=== PATIENT | male | born 1985 | race Hispanic/Latino ===

== ENCOUNTER 2016-10-16 11:17 | Emergency (ER) | payer OTHER ==
[~2016-10-16] VITALS: Ht 172.7 cm; Wt 102.1 kg
[~2016-10-16 11:17] MED LIST: LISINOPRIL10 M1 PO
[2016-10-16 11:24] VITALS: BP 136/87
--- NOTE | 2016-10-16 11:43 | ED GI/GU/ABDOMINAL COMPLAINT ---
History of Present Illness General Chief Complaint: Abdominal Pain/Flank Pain Stated Complaint: BLOOD IN URINE,LT SIDE ABD/FLANK PAIN Source: patient Exam Limitations: no limitations Vital Signs & Intake/Output Vital Signs & Intake/Output Vital Signs Date Time Temp Pulse Resp B/P Pulse O2 O2 Flow FiO2 Ox Delivery Rate 10/16 1124 97.6 93 20 136/87 98 Room Air Allergies Coded Allergies: NO KNOWN ALLERGIES (08/11/11) Reconcile Medications Lisinopril 10 MG TABLET 1 TAB PO DAILY BP (Reported) Tramadol HCl 50 MG TABLET 1 TAB PO BIDP PRN pain Triage Note: PT C/O BLOOD IN URINE X 3 DAYS. PT STATES A LITTLE PAIN IN HIS GROIN AND IN HIS LEFT SIDE Triage Nurses Notes Reviewed? yes Onset: Gradual Duration: day(s): (3) Timing: remote history Quality/Severity: aching Severity Numbers: 5 Location: left flank, left lower quadrant Radiation: no radiation Activities at Onset: none Prior Abdominal Problems: similar symptoms Sexually Active: Yes Last Time You Were Sexual: less than 2 months ago Sexual Orientation: Heterosexual Use of Protection: Yes Always No Modifying Factors: none HPI: Patient is a 31-year-old male presenting to the emergency department with chief complaint of hematuria and left flank and left lower quadrant pain is been going on intermittently for the past 3 days. He reports that the blood seems to, at the beginning and sometimes end of the stream. Denies any dysuria. Denies any frequency or urgency. History of similar symptoms 3 years ago that went away on its own. Denies any history of kidney stones being diagnosed. Denies any fevers chills nausea vomiting chest pain or shortness of breath. Denies chance of STD. No penile discharge. Denies any testicular pain. (RAISSA LLAMAS) Past History Travel History Traveled to [place] past 21 day No Medical History Any Pertinent Medical History? see below for history Cardiovascular: hypertension Surgical History Surgical History: non-contributory Psychosocial History What is your primary language Mongolian Tobacco Use: Current Daily Use Daily Tobacco Use Amount/Type: =< 4 Cigarettes daily ETOH Use: occasional use Illicit Drug Use: denies illicit drug use Family History Hx Contributory? No (RAISSA LLAMAS) Review of Systems Review of Systems Constitutional: Reports: no symptoms. Comments Review of systems: See HPI, All other systems negative. Constitutional, no chills fever or weight loss HEENT: No visual changes no sore throat no congestion Cardiovascular: No chest pain ,palpitation , orthopnea or ankle swelling Skin, no jaundice no rashes Respiratory: No dyspnea cough sputum or hemoptysis GI: No nausea no vomiting : No dysuria Muscle skeletal: no back pain, no neck pain, Neurologic: No numbness no confusion Psych: No stress anxiety or depression,. Heme/endocrine: No bruising no bleeding no polyuria or polydipsia Immunology: No splenectomy or history of AIDS (RAISSA LLAMAS) Physical Exam Physical Exam General Appearance: well developed/nourished, no apparent distress, alert, awake , comfortable Gastrointestinal: normal bowel sounds, soft, tenderness Comments: Well-developed well-nourished person in no acute distress HEENT: Pupils equally round and reactive to light and accommodation. Nose is atraumatic. Neck: Normal inspection Back: Nontender, no CVA tenderness. Full range of motion Cardiovascular: Regular rate and rhythms no murmurs rubs or gallops, normal JVP Respiratory: Chest nontender. No respiratory distress.breath sounds clear to auscultation bilaterally Abdomen: Soft, mildly tender to palpation in the left lower quadrant, no rebound or guarding, nondistended, no appreciable organomegaly. Normal bowel sounds. No ascites Extremity: No edema Neuro: Alert oriented x3 Skin: No appreciable rash on exposed skin, skin is warm and dry. Psych: Mood and affect is normal, memory and judgment is normal. Core Measures ACS in differential dx? No Severe Sepsis Present: No Septic Shock Present: No (RAISSA LLAMAS) Progress Differential Diagnosis: UTI/pyelo, pyelonephritis, hydronephrosis, UTI, STD, kidney stone, ureteral irritation, ureteral stricture, bladder ca Plan of Care: Orders Procedure Date/time Status Add-on Test (ER Only) 10/16 1222 Active COMPREHENSIVE METABOLIC PANEL 10/16 1142 Complete CBC WITHOUT DIFFERENTIAL 10/16 1142 Complete CULTURE,URINE 10/16 1135 Active URINALYSIS 10/16 1125 Complete Laboratory Tests 10/16/16 1142: Anion Gap 8, Estimated GFR > 60, BUN/Creatinine Ratio 11.8, Glucose 91, Calcium 9.7, Total Bilirubin 0.9, AST 25, ALT 43, Alkaline Phosphatase 72, Total Protein 7.3, Albumin 4.3, Globulin 3.0, Albumin/Globulin Ratio 1.4, CBC w Diff NO MAN DIFF REQ, RBC 5.55, MCV 91.1, MCH 30.8, RDW 12.9, MPV 9.1, Gran % 66.1, Lymphocytes % 24.5, Monocytes % 6.3, Eosinophils % 2.7, Basophils % 0.4, Absolute Granulocytes 7.3 H, Absolute Lymphocytes 2.7, Absolute Monocytes 0.7 H, Absolute Eosinophils 0.3, Absolute Basophils 0, PUBS MCHC 33.8 10/16/16 1135: Urinalysis LIGHT H, Urine Color YEL, Urine Clarity HAZY H, Urine pH 6.0, Ur Specific [place] 1.025, Urine Protein 30 H, Urine Ketones NEG, Urine Nitrite NEG, Urine Bilirubin NEG, Urine Urobilinogen 0.2, Ur Leukocyte Esterase NEG, Ur Microscopic SEDIMENT EXAMINED, Urine RBC 1-3, Ur Epithelial Cells FEW, Granular Casts RARE H, Urine Mucus FEW, Urine Hemoglobin MOD H, Urine Glucose NEG Microbiology 10/16 113 URINE ROUT: Urine Culture - RECD Diagnostic Imaging: Viewed by Me: CT Scan. Discussed w/RAD: CT Scan. Radiology Impression: PATIENT: MIGUEL POND PRESENT AGE: 31 PATIENT ACCOUNT NO: [id number] : 87 LOCATION: [facility] ORDERING PHYSICIAN: RAISSA YOUNG SERVICE DATE: 10/16/16 EXAM TYPE: CAT - CT ABD & PELVIS W/O IV CONTRAS EXAMINATION: CT ABDOMEN AND PELVIS WITHOUT CONTRAST CLINICAL INFORMATION: 31-year-old man with left flank pain and hematuria. COMPARISON: None TECHNIQUE: Multidetector volumetric imaging was performed from the superior aspect of the liver through the pubic symphysis. Sagittal and coronal reformatted images were obtained on the technologist's workstation. DLP: 865 mGy-cm FINDINGS: The lung bases are clear. No obstructive or nonobstructive renal or ureteral calculi are seen on either side. There is no hydronephrosis or perinephric stranding. The liver, spleen, pancreas, adrenals, and gallbladder are normal in their noncontrast appearance. Nondilated loops of large and small bowel are unremarkable in appearance. The appendix and terminal ileum are not inflamed. The prostate, seminal vesicles, and decompressed bladder are normal in appearance. IMPRESSION: No evidence of renal stone disease or any other acute intra-abdominal process. DICTATED BY: JENNY BALL MD DATE/TIME DICTATED:10/16/161204 DIRECTOR ATHLETIC:JARETT DATE/TIME TRANSCRIBED:1204 CONFIDENTIAL, DO NOT COPY WITHOUT APPROPRIATE AUTHORIZATION. < Electronically signed in Other Vendor System> SIGNED BY: JENNY BALL MD 01/25 1212 Initial ED EKG: none Comments: Patient declined pain medication on arrival. Patient's vitals are stable. No acute distress. He does have mild reproducible pain in left lower quadrant. No CVA tenderness. To assess urinalysis, CBC, CMP. Patient will have a CT scan to rule out kidney stone. Patient informed of all lab results and imaging results. No acute findings on CAT scan. Urinalysis does show small amount of hemoglobin. No obvious infection. We will send off a urine culture. Patient was informed that although CT scan is negative for stone there is always the potential for a small stone. He needs to follow up with urology for further evaluation of hematuria. (RAISSA LLAMAS) Departure Departure Time of Disposition: 1238 Disposition: HOME OR SELF CARE Condition: Stable Clinical Impression Primary Impression: Hematuria Secondary Impressions: Abdominal pain Qualifiers: Abdominal location: left lower quadrant Qualified Code: R10.32 - Left lower quadrant pain Referrals: BONILLA REID,HERMILA AVILA MD,AMANDA Canales (PCP/Family) Additional Instructions: Follow-up with urology call to make an appointment. Increase fluids. We sent out a urine culture, we will call you if anything comes back positive. Departure Forms: Customer Survey General Discharge Information Prescriptions: Current Visit Scripts Tramadol HCl 1 TAB PO BIDP PRN pain #10 TAB (RAISSA LLAMAS) PA/PUPIL PERSONNEL WORKER Co-Sign Statement Statement: ED Attending supervision documentation- [] I saw and evaluated the patient. I have also reviewed all the pertinent lab results and diagnostic results. I agree with the findings and the plan of care as documented in the PA's/PUPIL PERSONNEL WORKER's documentation. [X] I have reviewed the ED Record and agree with the PA's/PUPIL PERSONNEL WORKER's documentation. [] Additions or exceptions (if any) to the PAs/PUPIL PERSONNEL WORKER's note and plan are summarized below: [] (ADRIANA MD,LISSY)
--- NOTE | 2016-10-16 12:12 | CT SCAN REPORT ---
EXAMINATION: CT ABDOMEN AND PELVIS WITHOUT CONTRAST CLINICAL INFORMATION: 31-year-old man with left flank pain and hematuria. COMPARISON: None TECHNIQUE: Multidetector volumetric imaging was performed from the superior aspect of the liver through the pubic symphysis. Sagittal and coronal reformatted images were obtained on the technologist's workstation. DLP: 865 mGy-cm FINDINGS: The lung bases are clear. No obstructive or nonobstructive renal or ureteral calculi are seen on either side. There is no hydronephrosis or perinephric stranding. The liver, spleen, pancreas, adrenals, and gallbladder are normal in their noncontrast appearance. Nondilated loops of large and small bowel are unremarkable in appearance. The appendix and terminal ileum are not inflamed. The prostate, seminal vesicles, and decompressed bladder are normal in appearance. IMPRESSION: No evidence of renal stone disease or any other acute intra-abdominal process.
[2016-10-16 12:18] LABS: ABSOLUTE BASOPHIL COUNT 0 /CUMM (0.0-0.2); ABSOLUTE EOSINOPHIL COUNT 0.3 /CUMM (0.0-0.7); ABSOLUTE GRANULOCYTE CT 7.3 /CUMM (1.4-6.5); ABSOLUTE LYMPH COUNT 2.7 /CUMM (1.2-3.4); ABSOLUTE MONOCYTE COUNT 0.7 /CUMM (0.10-0.60); BASOPHIL % 0.4 % (0.0-2.0); EOSINOPHIL % 2.7 % (0-5); GRANULOCYTE % 66.1 % (42.2-75.2); HEMATOCRIT 50.5 % (42-52); MEAN CORPUSCULAR HGB 30.8 PG (27.0-31.0); MEAN CORPUSCULAR HGB CONC 33.8 G/DL (33.0-37.0); MEAN CORPUSCULAR VOLUME 91.1 FL (80.0-94.0); MEAN PLATELET VOLUME 9.1 FL (7.4-10.4); PLATELET COUNT 273 /CUMM (130-400); RBC DISTRIBUTION WIDTH 12.9 % (11.5-14.5); RED BLOOD CELL CT 5.55 /CUMM (4.70-6.10)
[2016-10-16] MEDS ORDERED: TRAMADOL HCL50 M1 PO (12:46)
== END 2016-10-16 13:03 ==
LOC: ERH 11:17
PROVIDERS: Physician Assistant
DX: R31.9 Hematuria, unspecified (principal); R10.32 Left lower quadrant pain
CPT/HCPCS: 74176; 81001; 87086